=== PATIENT | male | born 1970 | race Caucasian/White ===

== ENCOUNTER 2023-09-04 17:22 | Inpatient (IN) ==
[2023-09-05 01:50] LABS: ABS Basophils 0.1 10^3/uL (0.0-0.1); ABS Eosinophils 0.3 10^3/uL (0.0-0.5); ABS Lymphocytes 2.6 10^3/uL (1.0-4.8); ABS Monocytes 0.6 10^3/uL (0.0-1.1); ABS Neutrophils 5.8 10^3/uL (1.5-7.6); Eosinophil % 3.7 %; Hematocrit 26.8 % (38-53); Lymphocyte % 27.9 %; Mean Corpuscular Hemoglobin 26.3 pg (27-33); Mean Corpuscular Hgb Conc 33.6 g/dL (31-36); Mean Corpuscular Volume 78.4 fL (80-97); Mean Platelet Volume 7.3 fL (7.5-11.2); Platelet Count 473 10^3/uL (150-450); Red Blood Count 3.42 10^6/uL (4.06-5.63); Red Cell Distribution Width 16.1 % (12-17); White Blood Count 9.4 10^3/uL (3.6-10.2)
[2023-09-05 02:53] LABS: C Reactive Protein 12.71 mg/L (<8.01); Calcium 9.6 mg/dL (8.6-10.3); Creatinine, Serum 1.14 mg/dL (0.67-1.17); Potassium 4.4 mmol/L (3.5-5.0); Total Bilirubin 0.2 mg/dL (0.2-1.0)
[2023-09-05] MEDS: Acetaminophen IV 1 GM/100ML 1,000 MG/100 ML BAG IV PRN (02:59)
[2023-09-05 03:03] LABS: Erythrocyte Sed Rate 99 mm/Hr (0-19)
[2023-09-05 04:42] LABS: Ferritin 87.9 ng/mL (24-336)
[2023-09-05 08:07] LABS: Hematocrit 25.1 % (38-53); Hemoglobin 8.5 g/dL (13.2-16.3); Mean Corpuscular Hemoglobin 26.2 pg (27-33); Mean Corpuscular Hgb Conc 33.7 g/dL (31-36); Mean Corpuscular Volume 77.7 fL (80-97); Mean Platelet Volume 7.1 fL (7.5-11.2); Platelet Count 422 10^3/uL (150-450); Red Blood Count 3.23 10^6/uL (4.06-5.63); Red Cell Distribution Width 15.9 % (12-17); White Blood Count 8.5 10^3/uL (3.6-10.2)
[2023-09-05 08:52] LABS: Urine Benzodiazepine Screen None Detected (None Detect); Urine Cannabinoids Screen None Detected (None Detect); Urine Opiates Screen Presumptive Positive (None Detect)
[2023-09-05] MEDS ORDERED: Nicotine GUM 4MG FRUIT FLAVOR PO PRN (10:24)
[2023-09-05] MEDS ORDERED: Nicotine Lozenge mini 2 MG LOZNG.MINI MT PRN (10:24)
[2023-09-05] MEDS ORDERED: Ondansetron ODT 4 mg TAB 4 MG TAB PO PRN (10:26)
[2023-09-05] MEDS: Nicotine PATCH 21 MG/24 HR PATCH TRANSDERM SCH (11:54)
[2023-09-05 13:07] LABS: INR 1.15 (0.83-1.13)
[2023-09-05 14:12] LABS: HIV 4th Generation Nonreactive (Nonreactive)
[2023-09-05 14:20] LABS: Hepatitis C Antibody Negative (Negative)
[2023-09-05] MEDS ORDERED: Vancomycin per Pharmacy 1 EA NOTE FOLLOW UP SCH (18:00)
[2023-09-05] MEDS ORDERED: Zosyn per Pharmacy NOTE FOLLOW UP SCH (18:00)
[2023-09-05] MEDS: Piperacillin/Tazobac 3.375 BAG 3.375 GM/100 ML BAG IV ONE (18:25)
[2023-09-05] MEDS: Vancomycin 1,000 MG in NS 0.9% 250 ml 250 ML IVPB ONE (19:26)
[2023-09-05] MEDS: Gadoteridol (CONTRAST) 279.3 MG/ML 10 ML IV ONE (22:27)
[2023-09-05] MEDS: ZOSYN 3.375 GM Q8H per EXTENDED INFUSION IV SCH (23:02)
[2023-09-06] MEDS: Vancomycin 500 MG in NS 0.9% 250 ML IVPB SCH (05:30)
[2023-09-06 06:28] LABS: ABS Basophils 0.1 10^3/uL (0.0-0.1); ABS Eosinophils 0.2 10^3/uL (0.0-0.5); ABS Lymphocytes 3.3 10^3/uL (1.0-4.8); ABS Monocytes 0.7 10^3/uL (0.0-1.1); Eosinophil % 2.5 %; Hematocrit 23.8 % (38-53); Lymphocyte % 45.6 %; Mean Corpuscular Hemoglobin 25.9 pg (27-33); Mean Corpuscular Hgb Conc 33.4 g/dL (31-36); Mean Corpuscular Volume 77.6 fL (80-97); Mean Platelet Volume 7.1 fL (7.5-11.2); Platelet Count 369 10^3/uL (150-450); Red Blood Count 3.07 10^6/uL (4.06-5.63); White Blood Count 7.2 10^3/uL (3.6-10.2)
[2023-09-06 06:56] LABS: Calcium 8.7 mg/dL (8.6-10.3); Creatinine, Serum 0.86 mg/dL (0.67-1.17); Potassium 4.2 mmol/L (3.5-5.0); eGFR CKD-EPI 102.3 (>60)
[2023-09-06] MEDS: cefTRIAXone 2 gm/50 mL D5W 2 GM/50 ML BAG IV SCH (08:35)
[2023-09-06] MEDS: fentaNYL 250 mcg/5 ml 50 MCG/ML 5 ml VIAL (250 MCG) ONE (17:07)
[2023-09-07 06:41] LABS: ABS Basophils 0.1 10^3/uL (0.0-0.1); ABS Eosinophils 0.2 10^3/uL (0.0-0.5); ABS Lymphocytes 3.2 10^3/uL (1.0-4.8); ABS Monocytes 0.9 10^3/uL (0.0-1.1); Eosinophil % 2.4 %; Hematocrit 23.9 % (38-53); Mean Corpuscular Hemoglobin 26.2 pg (27-33); Mean Corpuscular Hgb Conc 33.5 g/dL (31-36); Mean Corpuscular Volume 78.3 fL (80-97); Mean Platelet Volume 7.6 fL (7.5-11.2); Platelet Count 380 10^3/uL (150-450); Red Blood Count 3.06 10^6/uL (4.06-5.63); Red Cell Distribution Width 15.8 % (12-17); White Blood Count 9.3 10^3/uL (3.6-10.2)
[2023-09-07 07:00] LABS: Calcium 8.6 mg/dL (8.6-10.3); Creatinine, Serum 0.91 mg/dL (0.67-1.17); Potassium 4.1 mmol/L (3.5-5.0); eGFR CKD-EPI 99.5 (>60)
[2023-09-07] MEDS: Vancomycin Trough Check NOTE FOLLOW UP ONE (07:41)
[2023-09-07] MEDS: Vancomycin 1000 MG in NS 0.9% 250 ML IVPB SCH (14:22)
[2023-09-08 06:43] LABS: ABS Basophils 0.1 10^3/uL (0.0-0.1); ABS Eosinophils 0.2 10^3/uL (0.0-0.5); ABS Lymphocytes 2.8 10^3/uL (1.0-4.8); ABS Monocytes 0.7 10^3/uL (0.0-1.1); ABS Neutrophils 5.3 10^3/uL (1.5-7.6); Eosinophil % 2.3 %; Hematocrit 25.3 % (38-53); Hemoglobin 8.4 g/dL (13.2-16.3); Lymphocyte % 30.9 %; Mean Corpuscular Hemoglobin 25.9 pg (27-33); Mean Corpuscular Hgb Conc 33.3 g/dL (31-36); Mean Corpuscular Volume 77.6 fL (80-97); Mean Platelet Volume 7.2 fL (7.5-11.2); Platelet Count 345 10^3/uL (150-450); Red Blood Count 3.26 10^6/uL (4.06-5.63); Red Cell Distribution Width 16.2 % (12-17); White Blood Count 9.1 10^3/uL (3.6-10.2)
[2023-09-08] MEDS: Pneumococcal 20-Valent Conj 0.5 ML SYR Vaccine IM ONE (11:23)
[2023-09-08] MEDS: Enoxaparin 40 MG/0.4 ML SYR SUBCUT SCH (11:26)
[2023-09-10 15:39] LABS: Creatinine, Serum 0.71 mg/dL (0.67-1.17); Vancomycin Trough 9.5 mcg/mL; eGFR CKD-EPI 108.4 (>60)
[2023-09-10] MEDS: Vancomycin Trough Check NOTE FOLLOW UP ONE (16:13)
[2023-09-10] MEDS: Calcium Carb (TUMS) 500 mg CHEW TAB PO ONE (20:15)
[2023-09-10] MEDS: Tetan/Diph/Pertus SYR(Tdap) 0.5 ML SYR(BOOSTRIX) use SYR contains LATEX IM ONE (20:20)
[2023-09-10] MEDS: Vancomycin 1000 MG in NS 0.9% 250 ML IVPB SCH (23:33)
[2023-09-11] MEDS: Vancomycin Trough Check NOTE FOLLOW UP ONE (17:10)
[2023-09-12 07:26] LABS: ABS Basophils 0.1 10^3/uL (0.0-0.1); ABS Eosinophils 0.4 10^3/uL (0.0-0.5); ABS Lymphocytes 2.8 10^3/uL (1.0-4.8); ABS Monocytes 0.9 10^3/uL (0.0-1.1); ABS Neutrophils 4.8 10^3/uL (1.5-7.6); Eosinophil % 4.1 %; Hematocrit 23.4 % (38-53); Hemoglobin 7.8 g/dL (13.2-16.3); Lymphocyte % 31.2 %; Mean Corpuscular Hgb Conc 33.3 g/dL (31-36); Mean Corpuscular Volume 78.2 fL (80-97); Mean Platelet Volume 7.4 fL (7.5-11.2); Platelet Count 332 10^3/uL (150-450); Red Cell Distribution Width 16.3 % (12-17); White Blood Count 8.9 10^3/uL (3.6-10.2)
[2023-09-12 07:47] LABS: Calcium 9.4 mg/dL (8.6-10.3); Creatinine, Serum 0.77 mg/dL (0.67-1.17); Potassium 4.8 mmol/L (3.5-5.0); eGFR CKD-EPI 105.7 (>60)
[2023-09-12] MEDS: Lidocaine PATCH 5% PATCH TRANSDERM SCH (09:59)
[2023-09-13 06:27] LABS: Hematocrit 22.5 % (38-53); Hemoglobin 7.5 g/dL (13.2-16.3); Mean Corpuscular Hemoglobin 25.9 pg (27-33); Mean Corpuscular Hgb Conc 33.1 g/dL (31-36); Mean Corpuscular Volume 78.4 fL (80-97); Mean Platelet Volume 7.1 fL (7.5-11.2); Platelet Count 345 10^3/uL (150-450); Red Blood Count 2.88 10^6/uL (4.06-5.63); Red Cell Distribution Width 16.3 % (12-17); White Blood Count 9.9 10^3/uL (3.6-10.2)
[2023-09-13 08:41] LABS: ABS Basophils 0.1 10^3/uL (0.0-0.1); ABS Eosinophils 0.4 10^3/uL (0.0-0.5); ABS Lymphocytes 1.8 10^3/uL (1.0-4.8); ABS Neutrophils 6.6 10^3/uL (1.5-7.6); Eosinophil % 4.1 %; Lymphocyte % 18.2 %
[2023-09-13 08:42] LABS: Microcytosis 1+
[2023-09-14 07:49] LABS: Hematocrit 23.3 % (38-53); Hemoglobin 7.7 g/dL (13.2-16.3); Mean Corpuscular Hemoglobin 25.9 pg (27-33); Mean Corpuscular Hgb Conc 33.2 g/dL (31-36); Mean Platelet Volume 7.1 fL (7.5-11.2); Platelet Count 317 10^3/uL (150-450); Red Blood Count 2.99 10^6/uL (4.06-5.63); Red Cell Distribution Width 16.4 % (12-17); White Blood Count 8.3 10^3/uL (3.6-10.2)
[2023-09-14] MEDS: Vancomycin Trough Check NOTE FOLLOW UP ONE (08:38)
[2023-09-14 08:41] LABS: ABS Basophils 0.1 10^3/uL (0.0-0.1); ABS Eosinophils 0.4 10^3/uL (0.0-0.5); ABS Lymphocytes 2.1 10^3/uL (1.0-4.8); ABS Monocytes 0.9 10^3/uL (0.0-1.1); Anisocytosis 1+; Eosinophil % 4.4 %; Lymphocyte % 24.7 %; Microcytosis 1+
[2023-09-15 06:12] LABS: ABS Basophils 0.1 10^3/uL (0.0-0.1); ABS Eosinophils 0.4 10^3/uL (0.0-0.5); ABS Neutrophils 4.2 10^3/uL (1.5-7.6); ABS Nucleated RBC 0.01 10^3/ul; Eosinophil % 5.3 %; Hematocrit 22.1 % (38-53); Hemoglobin 7.2 g/dL (13.2-16.3); Lymphocyte % 25.9 %; Mean Corpuscular Hemoglobin 25.6 pg (27-33); Mean Corpuscular Hgb Conc 32.9 g/dL (31-36); Mean Platelet Volume 7.1 fL (7.5-11.2); Nucleated Red Blood Cells % 0.1 %/100WBC (0.0-0.8); Platelet Count 294 10^3/uL (150-450); Red Blood Count 2.83 10^6/uL (4.06-5.63); Red Cell Distribution Width 16.8 % (12-17); White Blood Count 7.6 10^3/uL (3.6-10.2)
[2023-09-15 06:49] LABS: Calcium 9.2 mg/dL (8.6-10.3); Creatinine, Serum 0.73 mg/dL (0.67-1.17); Potassium 4.6 mmol/L (3.5-5.0); eGFR CKD-EPI 107.4 (>60)
[2023-09-15 10:16] LABS: Immature Retic Fraction 0.48
[2023-09-15 10:20] LABS: Albumin 3.4 g/dL (3.2-5.2); Albumin/Globulin Ratio 0.9 (1-3); Globulin 3.6 g/dL (2-4); Indirect Bilirubin 0.2 mg/dL (0.3-1.0); Total Bilirubin 0.2 mg/dL (0.2-1.0)
[2023-09-15 10:33] LABS: RBC Retic Count 1.46 10^6/ul (4.06-5.63)
[2023-09-15 10:34] LABS: Corrected Retic Count 0.8 % (0.5-2.2); Hematocrit for Retic CNT 22.1 % (38-53)
[2023-09-15 12:03] LABS: TSH Ultra Thyroid Stim Horm 3.04 mcIU/mL (0.34-5.60)
[2023-09-15 12:15] LABS: Folate 8.49 ng/mL (5.90-24.80)
[2023-09-16 08:18] LABS: Hematocrit 24.7 % (38-53); Hemoglobin 8.1 g/dL (13.2-16.3); Mean Corpuscular Hemoglobin 25.6 pg (27-33); Mean Corpuscular Hgb Conc 32.8 g/dL (31-36); Mean Platelet Volume 6.8 fL (7.5-11.2); Platelet Count 346 10^3/uL (150-450); Red Blood Count 3.17 10^6/uL (4.06-5.63); Red Cell Distribution Width 16.4 % (12-17); White Blood Count 7.5 10^3/uL (3.6-10.2)
[2023-09-16 08:35] LABS: ABS Basophils 0.1 10^3/uL (0.0-0.1); ABS Eosinophils 0.4 10^3/uL (0.0-0.5); ABS Lymphocytes 2.2 10^3/uL (1.0-4.8); ABS Neutrophils 3.8 10^3/uL (1.5-7.6); ABS Nucleated RBC 0.02 10^3/ul; Eosinophil % 5.7 %; Lymphocyte % 29.7 %; Nucleated Red Blood Cells % 0.2 %/100WBC (0.0-0.8)
[2023-09-16 08:56] LABS: Calcium 9.5 mg/dL (8.6-10.3); Creatinine, Serum 0.77 mg/dL (0.67-1.17); Potassium 4.6 mmol/L (3.5-5.0); eGFR CKD-EPI 105.7 (>60)
[2023-09-16] MEDS: Vancomycin Trough Check NOTE FOLLOW UP ONE (09:47)
[2023-09-17 04:54] LABS: Hemoglobin 7.9 g/dL (13.2-16.3); Mean Corpuscular Hemoglobin 25.7 pg (27-33); Mean Corpuscular Hgb Conc 33.1 g/dL (31-36); Mean Corpuscular Volume 77.7 fL (80-97); Platelet Count 327 10^3/uL (150-450); Red Blood Count 3.09 10^6/uL (4.06-5.63); Red Cell Distribution Width 16.4 % (12-17); White Blood Count 7.2 10^3/uL (3.6-10.2)
[2023-09-17 05:10] LABS: Calcium 9.4 mg/dL (8.6-10.3); Creatinine, Serum 0.8 mg/dL (0.67-1.17); Magnesium 1.7 mg/dL (1.9-2.7); Potassium 4.2 mmol/L (3.5-5.0); eGFR CKD-EPI 104.5 (>60)
[2023-09-17 06:33] LABS: ABS Basophils 0.1 10^3/uL (0.0-0.1); ABS Eosinophils 0.4 10^3/uL (0.0-0.5); ABS Lymphocytes 1.9 10^3/uL (1.0-4.8); ABS Neutrophils 3.8 10^3/uL (1.5-7.6); Anisocytosis 1+; Eosinophil % 5.7 %; Lymphocyte % 26.5 %; Microcytosis 1+
[2023-09-17] MEDS: Magnesium Sulfate 2 gm BAG 2 GM/50 ML BAG IVPB ONE (09:30)
[2023-09-17] MEDS: Enoxaparin 40 MG/0.4 ML SYR SUBCUT SCH (09:33)
[2023-09-18 06:37] LABS: Hematocrit 25.6 % (38-53); Hemoglobin 8.4 g/dL (13.2-16.3); Mean Corpuscular Hemoglobin 25.6 pg (27-33); Mean Corpuscular Hgb Conc 32.9 g/dL (31-36); Mean Corpuscular Volume 77.7 fL (80-97); Mean Platelet Volume 7.2 fL (7.5-11.2); Platelet Count 333 10^3/uL (150-450); Red Cell Distribution Width 16.6 % (12-17); White Blood Count 7.7 10^3/uL (3.6-10.2)
[2023-09-18 07:00] LABS: Calcium 9.2 mg/dL (8.6-10.3); Creatinine, Serum 0.8 mg/dL (0.67-1.17); Magnesium 1.9 mg/dL (1.9-2.7); Potassium 4.6 mmol/L (3.5-5.0); eGFR CKD-EPI 104.5 (>60)
[2023-09-18] MEDS: Magnesium Sulfate 2 gm BAG 2 GM/50 ML BAG IVPB ONE (08:15)
[2023-09-18 10:28] LABS: ABS Basophils 0.1 10^3/uL (0.0-0.1); ABS Eosinophils 0.4 10^3/uL (0.0-0.5); ABS Lymphocytes 1.9 10^3/uL (1.0-4.8); ABS Neutrophils 4.4 10^3/uL (1.5-7.6); Eosinophil % 5.4 %; Microcytosis 1+; Polychromasia 1+
[2023-09-18 11:28] LABS: C Reactive Protein 14.11 mg/L (<8.01)
[2023-09-19 08:09] LABS: Hematocrit 26.5 % (38-53); Hemoglobin 8.7 g/dL (13.2-16.3); Mean Corpuscular Hemoglobin 25.6 pg (27-33); Mean Corpuscular Volume 77.8 fL (80-97); Mean Platelet Volume 7.2 fL (7.5-11.2); Platelet Count 351 10^3/uL (150-450); Red Cell Distribution Width 17.1 % (12-17); White Blood Count 7.4 10^3/uL (3.6-10.2)
[2023-09-19 08:43] LABS: Calcium 9.5 mg/dL (8.6-10.3); Creatinine, Serum 0.72 mg/dL (0.67-1.17); Magnesium 1.9 mg/dL (1.9-2.7); Potassium 4.5 mmol/L (3.5-5.0); eGFR CKD-EPI 107.9 (>60)
[2023-09-19] MEDS: Vancomycin Trough Check NOTE FOLLOW UP ONE (08:45)
[2023-09-19 09:26] LABS: ABS Basophils 0.1 10^3/uL (0.0-0.1); ABS Eosinophils 0.4 10^3/uL (0.0-0.5); ABS Lymphocytes 1.7 10^3/uL (1.0-4.8); ABS Monocytes 0.9 10^3/uL (0.0-1.1); ABS Neutrophils 4.3 10^3/uL (1.5-7.6); Lymphocyte % 23.5 %
[2023-09-19] MEDS: Vancomycin 1,250 MG in NS 0.9% 250 ml 250 ML IVPB SCH (23:30)
[2023-09-20 06:22] LABS: Hematocrit 26.7 % (38-53); Hemoglobin 8.8 g/dL (13.2-16.3); Mean Corpuscular Hemoglobin 25.7 pg (27-33); Mean Platelet Volume 7.3 fL (7.5-11.2); Platelet Count 329 10^3/uL (150-450); Red Blood Count 3.42 10^6/uL (4.06-5.63); White Blood Count 6.1 10^3/uL (3.6-10.2)
[2023-09-20 06:42] LABS: Calcium 9.5 mg/dL (8.6-10.3); Creatinine, Serum 0.81 mg/dL (0.67-1.17); Magnesium 1.8 mg/dL (1.9-2.7); Potassium 4.3 mmol/L (3.5-5.0); eGFR CKD-EPI 104.1 (>60)
[2023-09-20] MEDS: Magnesium Sulfate 2 gm BAG 2 GM/50 ML BAG IVPB ONE (08:08)
[2023-09-20 09:40] LABS: ABS Basophils 0.1 10^3/uL (0.0-0.1); ABS Eosinophils 0.4 10^3/uL (0.0-0.5); ABS Lymphocytes 1.8 10^3/uL (1.0-4.8); ABS Monocytes 0.7 10^3/uL (0.0-1.1); ABS Neutrophils 3.1 10^3/uL (1.5-7.6); ABS Nucleated RBC 0.01 10^3/ul; Eosinophil % 6.1 %; Lymphocyte % 30.3 %; Nucleated Red Blood Cells % 0.1 %/100WBC (0.0-0.8)
[2023-09-20] MEDS: Lidocaine 1% MPF 5 ML VIAL INJ ONE (16:44)
[2023-09-21 07:35] LABS: Calcium 9.6 mg/dL (8.6-10.3); Creatinine, Serum 0.83 mg/dL (0.67-1.17); Magnesium 1.9 mg/dL (1.9-2.7); Potassium 4.3 mmol/L (3.5-5.0); eGFR CKD-EPI 103.4 (>60)
[2023-09-21 09:51] LABS: Vancomycin Trough 13.4 mcg/mL
[2023-09-21] MEDS: Vancomycin Trough Check NOTE FOLLOW UP ONE (10:03)
[2023-09-21 16:13] LABS: Creatinine, Serum 0.82 mg/dL (0.67-1.17); eGFR CKD-EPI 103.7 (>60)
[2023-09-21 20:09] LABS: Hemoglobin 8.1 g/dL (13.2-16.3); Mean Corpuscular Hgb Conc 32.5 g/dL (31-36); Mean Platelet Volume 7.8 fL (7.5-11.2); Platelet Count 350 10^3/uL (150-450); Red Blood Count 3.13 10^6/uL (4.06-5.63); Red Cell Distribution Width 17.2 % (12-17)
[2023-09-21 21:05] LABS: ABS Basophils 0.1 10^3/uL (0.0-0.1); ABS Eosinophils 0.4 10^3/uL (0.0-0.5); ABS Lymphocytes 1.8 10^3/uL (1.0-4.8); ABS Monocytes 0.9 10^3/uL (0.0-1.1); ABS Neutrophils 3.9 10^3/uL (1.5-7.6); ABS Nucleated RBC 0.04 10^3/ul; Eosinophil % 5.3 %; Lymphocyte % 25.6 %; Nucleated Red Blood Cells % 0.6 %/100WBC (0.0-0.8); RBC Morphology Normal (Normal)
[2023-09-22 05:51] LABS: Hematocrit 25.7 % (38-53); Hemoglobin 8.5 g/dL (13.2-16.3); Mean Corpuscular Hgb Conc 33.2 g/dL (31-36); Mean Corpuscular Volume 78.4 fL (80-97); Mean Platelet Volume 7.6 fL (7.5-11.2); Platelet Count 324 10^3/uL (150-450); Red Blood Count 3.27 10^6/uL (4.06-5.63); Red Cell Distribution Width 17.2 % (12-17); White Blood Count 6.8 10^3/uL (3.6-10.2)
[2023-09-22 06:24] LABS: Calcium 9.8 mg/dL (8.6-10.3); Creatinine, Serum 0.8 mg/dL (0.67-1.17); Potassium 4.1 mmol/L (3.5-5.0); eGFR CKD-EPI 104.5 (>60)
[2023-09-22 09:00] LABS: ABS Basophils 0.1 10^3/uL (0.0-0.1); ABS Eosinophils 0.5 10^3/uL (0.0-0.5); ABS Monocytes 0.9 10^3/uL (0.0-1.1); ABS Neutrophils 3.3 10^3/uL (1.5-7.6); ABS Nucleated RBC 0.01 10^3/ul; Microcytosis 1+; Nucleated Red Blood Cells % 0.1 %/100WBC (0.0-0.8); Polychromasia 1+
[2023-09-23 05:45] LABS: Hematocrit 26.7 % (38-53); Hemoglobin 8.7 g/dL (13.2-16.3); Mean Corpuscular Hemoglobin 25.6 pg (27-33); Mean Corpuscular Hgb Conc 32.7 g/dL (31-36); Mean Corpuscular Volume 78.2 fL (80-97); Mean Platelet Volume 7.4 fL (7.5-11.2); Platelet Count 336 10^3/uL (150-450); Red Blood Count 3.41 10^6/uL (4.06-5.63); Red Cell Distribution Width 17.6 % (12-17); White Blood Count 6.7 10^3/uL (3.6-10.2)
[2023-09-23 06:19] LABS: Albumin 3.9 g/dL (3.2-5.2); Calcium 9.7 mg/dL (8.6-10.3); Creatinine, Serum 0.8 mg/dL (0.67-1.17); Globulin 3.8 g/dL (2-4); Magnesium 1.9 mg/dL (1.9-2.7); Potassium 4.4 mmol/L (3.5-5.0); Total Bilirubin 0.2 mg/dL (0.2-1.0); Total Protein 7.7 g/dL (6.4-8.9); eGFR CKD-EPI 104.5 (>60)
[2023-09-23 07:40] LABS: ABS Basophils 0.1 10^3/uL (0.0-0.1); ABS Eosinophils 0.5 10^3/uL (0.0-0.5); ABS Lymphocytes 1.8 10^3/uL (1.0-4.8); ABS Neutrophils 3.3 10^3/uL (1.5-7.6); Anisocytosis 1+; Eosinophil % 7.6 %; Lymphocyte % 26.6 %; Macrocytosis 1+; Microcytosis 1+; Polychromasia 1+
[2023-09-23] MEDS: Magnesium Sulfate 2 gm BAG 2 GM/50 ML BAG IVPB ONE (16:56)
[2023-09-24 08:00] LABS: Hematocrit 25.7 % (38-53); Hemoglobin 8.5 g/dL (13.2-16.3); Mean Corpuscular Hemoglobin 26.1 pg (27-33); Mean Corpuscular Hgb Conc 33.1 g/dL (31-36); Mean Corpuscular Volume 78.6 fL (80-97); Mean Platelet Volume 7.9 fL (7.5-11.2); Platelet Count 325 10^3/uL (150-450); Red Blood Count 3.27 10^6/uL (4.06-5.63); Red Cell Distribution Width 17.7 % (12-17); White Blood Count 6.3 10^3/uL (3.6-10.2)
[2023-09-24 09:54] LABS: Calcium 9.1 mg/dL (8.6-10.3); Creatinine, Serum 0.93 mg/dL (0.67-1.17); Magnesium 1.9 mg/dL (1.9-2.7); Potassium 4.4 mmol/L (3.5-5.0)
[2023-09-24] MEDS: Vancomycin Trough Check NOTE FOLLOW UP ONE (10:13)
[2023-09-24 10:58] LABS: Creatinine, Serum 0.92 mg/dL (0.67-1.17); Vancomycin Trough 13.6 mcg/mL; eGFR CKD-EPI 98.2 (>60)
[2023-09-24 14:01] VITALS: BP 127/93
== END 2023-09-24 17:02 | disposition home or self-care (01) | DRG 344 ==
LOC: ED 17:22 → EDHOLD 23:01 → SUATTDRO 23:01 → MED 09-05 15:10
PROVIDERS: ADMIT Internal Medicine; ATTEND Family Medicine